=== PATIENT | male | born 1965 | race Caucasian/White ===

== ENCOUNTER 2016-10-05 17:02 | Emergency (ER) | payer MEDICARE ==
[2016-10-05 15:12] LABS: BASOPHILS 0.3 %; BASOPHILS ABSOLUTE 0.02 10/3/uL (0.0-0.16); EOSINOPHILS 1.7 %; EOSINOPHILS ABSOLUTE 0.11 10/3/uL (0.0-0.53); ER CBC TAT 0 Hrs 11 Mins; HEMATOCRIT 42.6 % (40.0-51.0); HEMOGLOBIN 14.4 g/dL (13.6-17.8); IMMATURE GRANULOCYTES 0.2 %; IMMATURE GRANULOCYTES ABSOLUTE 0.01 10/3/uL (0.0-0.11); LYMPHOCYTES 27.3 %; MANUAL DIFF NO %; MEAN CORPUS HGB CONC 33.8 g/dL (32.0-36.0); MEAN CORPUSCULAR HEMOGLOB 30.4 pg (26.0-34.0); MEAN CORPUSCULAR VOLUME 90.1 fL (80-100); MEAN PLATELET VOLUME 10.2 fL (9.2-13.0); MONOCYTES 10.6 %; NEUTROPHILS 59.9 %; NEUTROPHILS ABSOLUTE 3.95 10/3/uL (2.02-8.40); PLATELET COUNT 225 10/3/uL (150-400); RBC DISTRIBUTION WIDTH 13.1 % (12.0-16.0); RED CELL COUNT 4.73 10/6/uL (4.7-6.1); WHITE BLOOD CELLS 6.6 10/3/uL (4.5-10.5)
[2016-10-05 15:20] LABS: INTERNATIONAL NORMAL RATI 1.1 UNITS (-); PARTIAL THROMBO TIME 30.2 SEC (22.5-37.2)
[2016-10-05 15:31] LABS: ALBUMIN 3.5 G/DL (3.5-5.0); ALKALINE PHOSPHATASE 72 U/L (45-117); BUN (BLOOD UREA NITROGEN) 8 MG/DL (6-23); CHEST PAIN PROFILE TAT 0 Hrs 24 Mins; CHLORIDE, SERUM 103 MMOL/L (96-112); CREATININE 1.02 MG/DL (0.70-1.30); GFR AFRICAN AMERICAN 99 ML/MIN (>=60); GFR NON AFRICAN AMERICAN 85 ML/MIN (>=60); GLUCOSE, SERUM 105 MG/DL (60-99); SGOT(AST) 39 U/L (5-40); SGPT(ALT) 66 U/L (5-65); SODIUM, SERUM 138 MMOL/L (135-148); TOTAL BILIRUBIN 0.4 MG/DL (0-1.2); TOTAL PROTEIN 7.5 G/DL (6.0-8.5); TROPONIN I <0.02 NG/ML (<0.05)
[2016-10-05 15:32] LABS: CO2 (CARBON DIOXIDE) 31 MMOL/L (24-34); DIRECT BILIRUBIN < 0.1 MG/DL (0.0-0.4); INDIRECT BILIRUBIN(NOT ORDER) 0.3 MG/DL (0.1-0.9); POTASSIUM, SERUM 3.9 MMOL/L (3.5-5.3)
[2016-10-05 16:01] LABS: ASCORBIC ACID (UR NOT ORDER) NEG (NEG); BILIRUBIN, URINE NEGATIVE (NEG); ER URINALYSIS TAT 0 Hrs 09 Mins; KETONE, URINE NEGATIVE (NEG); LEUKOCYTE ESTERASE(NOT OR TRACE (NEG); NITRITE (URINE) NEG (NEG); WBC (NOT ORDERED) (RFLEX) 12 (0-5)
[~2016-10-05 17:02] MED LIST: *DENIES; NORCO1 TA2 PO; [UNRECOGNIZED DRUG - OTHER]
[2016-11-10] MEDS ORDERED: GAS-X (08:38)
[2016-11-10] MEDS ORDERED: BEN25 PO (08:38)
[2016-11-10] MEDS ORDERED: ENDOCET1 TAB PO (08:40)
[2016-11-10] MEDS ORDERED: ADVIL PO (08:41)
== END 2016-10-05 18:11 | disposition home or self-care (01) ==
LOC: ER 17:02
PROVIDERS: Physician Assistant
DX: R10.31 Right lower quadrant pain (principal); R31.9 Hematuria, unspecified; R11.0 Nausea; Z87.891 Personal history of nicotine dependence; Z90.49 Acquired absence of other specified parts of digestive tract
CPT/HCPCS: 71020; 74176; 80048; 80076; 81001; 83690; 83735; 84484; 85025; 85610; 85730; 93005; 96372; 99285; J2405

== ENCOUNTER 2016-11-10 16:09 | Day surgery (SDC) | payer MEDICARE ==
--- NOTE | ~2016-11-10 | OP ---
Record Of Operation [facility] [address] [place]. [address] NAME: CHRISTEN SMALLS : 67 STATUS : REG [facility]#: [id number] AGE: 51 ADM/REG DATE : 11/14/16 MR#: [id number] REPORT SERV DATE: 11/14/16 DICTATED BY: MORAIMA SÁNCHEZ DATE: 11/14/16 REPORT STATUS : Draft TRANSCRIBED BY: VICKIE DATE: 11/14/16 DATE OF PROCEDURE: 11/14/2016 TITLE OF OPERATION: Cystourethroscopy, right retrograde pyelogram, right ureteroscopy with laser lithotripsy. PREOPERATIVE DIAGNOSIS: Right renal stone. POSTOPERATIVE DIAGNOSIS: Right renal stone. INDICATIONS: Mr. Smalls is a 51-year-old male, with a 1.2 cm right renal pelvic stone, with intermittent obstruction and pain. He is here for ureteroscopy. ANESTHESIA: General. COMPLICATIONS: None. IMPLANTS: None. SPECIMENS: None. NARRATIVE: The patient was brought to the operating room, identified by his wristband. General anesthesia was induced and Levaquin was given for preoperative antibiotics. He was placed in dorsal lithotomy position, and prepped and draped in sterile fashion. A cystoscope was placed into his urethra into his bladder. His urethra was normal. His prostate was not obstructing. The bladder had no tumors or other abnormalities. The right ureteral orifice was identified and cannulated with a Sensor wire. A retrograde pyelogram was shot, which showed a normal ureter and kidney with a filling defect in the renal pelvis. A wire was placed up to the level of the kidney. A flexible ureteroscope was placed over the wire up to the renal pelvis. The kidney was inspected and one 1.2 cm stone was identified. Using a 200 micron holmium laser fiber and 100 watt laser, the stone was fragmented into innumerable sub micron pieces. The residual stone was all dusted and too small to be grasped with a basket. The instrumentation was nontraumatic that did not take any of the stent. The scope was withdrawn. The bladder was drained. The patient was awoken from anesthesia and transferred to the recovery room in stable condition. I will see him back in two weeks. MAYUR/VICKIE Moraima Sánchez MD / [id number] Record Of Operation [place] [address] [place] [address] NAME: CHRISTEN SMALLS : 67 STATUS : REG [facility] [place] PAT#: [id number] AGE: 51 ADM/REG DATE : 11/14/16 MR#: [id number] REPORT SERV DATE: 11/14/16 DICTATED BY: MORAIMA SÁNCHEZ DATE: 11/14/16 REPORT STATUS : Draft TRANSCRIBED BY: MODL DATE: 11/14/16 CC: Moraima Sánchez MD
[~2016-11-10 16:09] MED LIST changes: +ADVIL PO; +BEN25 PO; +ENDOCET1 TAB PO; +GAS-X
[2016-11-14 08:22] LABS: WBC (NOT ORDERED) (RFLEX) 0 (0-5)
[2016-11-14 08:26] LABS: HEMATOCRIT 44.7 % (40.0-51.0); HEMOGLOBIN 15.4 g/dL (13.6-17.8)
[2016-11-14 08:31] LABS: ASCORBIC ACID (UR NOT ORDER) NEG (NEG); BILIRUBIN, URINE NEGATIVE (NEG); KETONE, URINE NEGATIVE (NEG); LEUKOCYTE ESTERASE(NOT OR NEG (NEG)
== END 2016-11-14 17:23 | disposition home or self-care (01) ==
LOC: PRET 16:09 → SDC 11-14 07:56
PROVIDERS: Urology
PROC: 0TF38ZZ Fragmentation in Right Kidney Pelvis, Via Natural or Artificial Opening Endoscopic (ICD-10-PCS; principal; 2016-11-14 09:45)
DX: N20.0 Calculus of kidney (principal); I47.1 Supraventricular tachycardia; M19.90 Unspecified osteoarthritis, unspecified site; K21.9 Gastro-esophageal reflux disease without esophagitis; Z90.49 Acquired absence of other specified parts of digestive tract; Z79.899 Other long term (current) drug therapy; Z87.891 Personal history of nicotine dependence; Z98.890 Other specified postprocedural states
CPT/HCPCS: 74420; 81001; 85014; 85018; 93005; A9270-GY; C1758; J0330; J1170; J1885; J2250; J2405; J2550; J2710; J3010; Q9967